=== PATIENT | male | born 2000 | race Hispanic/Latino ===

== ENCOUNTER 2018-03-13 15:53 | Emergency (ER) | payer OTHER ==
[~2018-03-13] VITALS: Ht 170.2 cm; Wt 59.4 kg
[2018-03-13] MEDS ORDERED: NEOMYCIN/POLYMYX/BACITR OINT 0.9 GM PKT TOP ONE (17:45)
== END 2018-03-13 18:50 | disposition home or self-care (01) ==
LOC: ER 15:53
DX: S01.01XA Laceration without foreign body of scalp, initial encounter (principal); W22.8XXA Striking against or struck by other objects, initial encounter; Y99.0 Civilian activity done for income or pay
CPT/HCPCS: 99283